=== PATIENT | female | born 1970 | race Caucasian/White ===

== ENCOUNTER 2017-05-19 15:34 | Emergency (ER) | payer BC | END 2017-05-19 16:10 | disposition left against medical advice (07) | LOC: UCCORT 15:34 | DX: S89.92XA Unspecified injury of left lower leg, initial encounter (principal); X58.XXXA Exposure to other specified factors, initial encounter; Y93.9 Activity, unspecified; Y92.9 Unspecified place or not applicable; Z53.21 Procedure and treatment not carried out due to patient leaving prior to being seen by health care provider ==

== ENCOUNTER 2017-05-19 16:10 | Emergency (ER) | payer BC ==
[2017-05-19 18:55] VITALS: BP 117/68
--- NOTE | 2017-05-19 20:23 | UC ---
Lower Extremity/Ankle HPI - HPI Summary HPI Summary: pt c/o bilateral intermittent feet swelling and left knee pain. Pt has history of CHF and has implanted AED. Pt states that bilateral feet will swell after standing for long periods of time and will become tender. Pt denies SOB, cough, chest pain. Pt reports that the swelling in bilateral feet resolves and the left knee pain is intermittent. - History of Current Complaint Chief Complaint: UCLowerExtremity Stated Complaint: LEFT KNEE PAIN Time Seen by Provider: 05/19/17 19:05 Hx Obtained From: Patient Hx Last Menstrual Period: 05/19/17 ?: No Onset/Duration: Gradual Onset, Lasting Hours, Resolved Severity Initially: Mild Severity Currently: None Pain Intensity: 7 Pain Scale Used: 0-10 Numeric Aggravating Factor(s): Standing Alleviating Factor(s): Rest, Elevation Able to Bear Weight: Yes - Risk Factors Gout Risk Factors: Age Over 40, Obesity DVT Risk Factors: Negative Septic Arthritis Risk Factor: Negative - Allergies/Home Medications Allergies/Adverse Reactions: Allergies Allergy/AdvReac Type Severity Reaction Status Date / Time No Known Allergies Allergy Verified 05/19/17 18:54 Home Medications: Home Medications Ibuprofen [Advil] 600 mg PO 05/19/17 [History] Ramipril [Altace-] 5 mg PO DAILY 05/19/17 [History Confirmed 05/19/17] PMH/Surg Hx/FS Hx/Imm Hx Previously Healthy: No Cardiovascular History: Pacemaker/ICD, Congestive Heart Failure - Surgical History Surgical History: Yes Surgery Procedure, Year, and Place: c section 1994; tubal ligation 1997. defib - Family History Known Family History: Positive: Cardiac Disease - cardiomyopathy, chf - Social History Occupation: Employed Full-time Lives: With Family Alcohol Use: Occasionally Substance Use Type: None Smoking Status (MU): Former Smoker Have You Smoked in the Last Year: No When Did the Patient Quit Smoking/Using Tobacco: 2013 - Immunization History Vaccination Up to Date: Yes Review of Systems Constitutional: Negative Skin: Negative Eyes: Negative ENT: Negative Respiratory: Negative Cardiovascular: Negative Gastrointestinal: Negative Genitourinary: Negative Motor: Negative Neurovascular: Negative Musculoskeletal: Arthralgia - left knee, Edema - bilateral lower Neurological: Negative Psychological: Negative Is Patient Immunocompromised?: No All Other Systems Reviewed And Are Negative: Yes Physical Exam Triage Information Reviewed: Yes Appearance: Well-Appearing Vital Signs: Initial Vital Signs Temp 97.4 F 05/19/17 18:50 Pulse 79 05/19/17 18:50 Resp 18 05/19/17 18:50 BP 117/68 05/19/17 18:50 Pulse Ox 97 05/19/17 18:50 Vital Signs Reviewed: Yes Eye Exam: Normal ENT Exam: Normal Dental Exam: Normal Neck exam: Normal Respiratory Exam: Normal Cardiovascular Exam: Normal Abdominal Exam: Normal Musculoskeletal Exam: Normal Musculoskeletal: Positive: ROM Intact, No Edema Neurological Exam: Normal Psychological Exam: Normal Skin Exam: Normal Lower Extremity Course/Dx - Course Course Of Treatment: I disucssed wiht the pt the need to follow up with her remote pilot operator as soon as possible. Pt verbalized understanding and agreed to plan of care. I also discussed the need to follow up with an orthpedic provider as needed. - Differential Dx/Diagnosis Differential Diagnosis/HQI/PQRI: Bursitis, Strain Provider Diagnoses: dependent edema. left knee pain Discharge - Discharge Plan Condition: Stable Disposition: HOME Patient Education Materials: Leg Edema (ED), Knee Pain (ED) Referrals: Yuval YEPEZ,Umesh Cast [Medical Doctor] - 1 Day Claudia Perez MD [Primary Care Provider] - If Needed Additional Instructions: Please follow up with your PCP as needed and your remote pilot operator as soon as possible.
== END 2017-05-19 19:32 | disposition home or self-care (01) ==
LOC: UCCORT 16:10
DX: R60.0 Localized edema (principal); M25.562 Pain in left knee; I50.9 Heart failure, unspecified; Z95.0 Presence of cardiac pacemaker; Z87.891 Personal history of nicotine dependence
CPT/HCPCS: 99211; G0463

== ENCOUNTER 2018-08-20 07:46 | Emergency (ER) | payer BC ==
[2018-08-20 07:56] VITALS: BP 133/64
--- NOTE | 2018-08-20 08:15 | ED ---
Lower Extremity - HPI Summary HPI Summary: 47 yr old female with the complaint of right knee pain. Onset a couple of years ago, but with time that pain went away. Same pain and location now for the past three weeks. Pain in the right patella, and worse with walking down stairs. No swelling, fever, chills. No falls or direct trauma. - History of Current Complaint Chief Complaint: UCLowerExtremity Stated Complaint: RIGHT KNEE PAIN Time Seen by Provider: 08/20/18 08:02 Hx Last Menstrual Period: 08/19/18 Pain Intensity: 8 - Allergies/Home Medications Allergies/Adverse Reactions: Allergies Allergy/AdvReac Type Severity Reaction Status Date / Time No Known Allergies Allergy Verified 08/20/18 07:53 PMH/Surg Hx/FS Hx/Imm Hx Cardiovascular History: Reports: Hx Congestive Heart Failure - Surgical History Surgery Procedure, Year, and Place: c section 1994; tubal ligation 1997. defib Infectious Disease History: No Infectious Disease History: Denies: Traveled Outside the [place] in Last 30 Days - Family History Known Family History: Positive: Cardiac Disease - cardiomyopathy, chf - Social History Occupation: Employed Full-time Alcohol Use: Occasionally Substance Use Type: Reports: None Smoking Status (MU): Former Smoker Have You Smoked in the Last Year: No Review of Systems Constitutional: Negative Positive: Other - right knee cap pain All Other Systems Reviewed And Are Negative: Yes Physical Exam Triage Information Reviewed: Yes Vital Signs On Initial Exam: Initial Vitals Temp Pulse Resp BP Pulse Ox 97.2 F 89 20 133/64 99 08/20/18 07:53 08/20/18 07:53 08/20/18 07:53 08/20/18 07:53 08/20/18 07:53 Vital Signs Reviewed: Yes Appearance: Positive: Well-Appearing, No Pain Distress, Obese Skin: Positive: Warm, Skin Color Reflects Adequate Perfusion Head/Face: Positive: Normal Head/Face Inspection Eyes: Positive: EOMI ENT: Positive: Normal ENT inspection Neck: Positive: Nontender Respiratory/Lung Sounds: Positive: Clear to Auscultation, Breath Sounds Present Cardiovascular: Positive: RRR. Negative: Murmur Abdomen Description: Negative: Distended Musculoskeletal: Positive: Strength/ROM Intact, Other - some tenderness over the right patella, but no obvious effusion, redness, bruise. Neurological: Positive: Sensory/Motor Intact, Alert, Oriented to Person Place, Time, CN Intact II-III Psychiatric: Positive: Normal Diagnostics - Vital Signs Vital Signs Temp Pulse Resp BP Pulse Ox 08/20/18 07:53 97.2 F 89 20 133/64 99 - Laboratory Lab Statement: Any lab studies that have been ordered have been reviewed, and results considered in the medical decision making process. - Radiology right knee Radiology Interpretation Completed By: Radiologist - patello femoral changes and medial knee changes ---DJD. Lower Extremity Course/Dx - Course Course Of Treatment: Morbid obese female with knee pain, DJD. FU with Ortho. - Diagnoses Provider Diagnoses: Patella-femoral syndrome, Right knee DJD Discharge - Sign-Out/Discharge Documenting (check all that apply): Patient Departure All imaging exams completed and their final reports reviewed: Yes - Discharge Plan Condition: Good Disposition: HOME Patient Education Materials: Patellofemoral Pain Syndrome (ED), Arthritis (ED) Referrals: Cluadia Perez MD [Primary Care Provider] - 2 Days Abdi Duke MD [Medical Doctor] - 2 Days - Billing Disposition and Condition Condition: GOOD Disposition: Home
== END 2018-08-20 08:48 | disposition home or self-care (01) ==
LOC: UCCORT 07:46
DX: M17.11 Unilateral primary osteoarthritis, right knee (principal); E66.01 Morbid (severe) obesity due to excess calories; M22.2X1 Patellofemoral disorders, right knee; Z87.891 Personal history of nicotine dependence
CPT/HCPCS: 99211; G0463